=== PATIENT | male | born 1970 | race Caucasian/White ===

== ENCOUNTER 2016-11-01 10:11 | Emergency (ER) | payer OTHER ==
[2016-11-01 10:24] VITALS: BP 157/94; PULSE 77; TEMP 98.3; BMI 33.2
[2016-11-01] MEDS ORDERED: OXYCODONE/APAP 5/325MG COMBO TABLET PO ONE (11:25)
[2016-11-01] MEDS ORDERED: OXYCODONE/APAP 5/325MG COMBO TABLET ONE (11:26)
--- NOTE | 2016-11-01 13:27 | PDOC ---
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 - Psycho/Social/Smoking Cessation Hx Suicidal Ideation: No Smoking History: Never smoked Review of Systems - Review of Systems Constitutional: Yes: Malaise. No: Chills, Fever HEENTM: No: Symptoms Reported Respiratory: No: Symptoms reported, Cough Cardiac (ROS): No: Symptoms Reported, Lightheadedness : No: Burning, Dysuria, Hematuria, Incontinence, Testicular Swelling *Physical Exam - Vital Signs Last Vital Signs Temp Pulse Resp BP Pulse Ox 98.3 F 77 16 157/94 97 11/01/16 10:21 11/01/16 10:21 11/01/16 10:21 11/01/16 10:21 11/01/16 10:21 - Physical Exam General Appearance: Yes: Appropriately Dressed. No: Apparent Distress HEENT: positive: TMs Normal, Pharynx Normal Neck: positive: Supple, Lymphadenopathy (R). negative: Tender, Rigid, Lymphadenopathy (L) Respiratory/Chest: positive: Lungs Clear, Accessory Muscle Use Cardiovascular: positive: Regular Rhythm, Regular Rate Rectal Exam: positive: hemorrhoids (large non thrombosised hemorrhoid; no bleeding). negative: melena, decreased tone ED Treatment Course - Medications Given in the ED: ED Medications Discontinued Medications Generic Name Dose Route Start Last Admin Trade Name Freq PRN Reason Stop Dose Admin Oxycodone/Acetaminophen 2 combo 11/01/16 11:25 11/01/16 11:28 Percocet 5/325 - PO 11/01/16 11:26 2 combo ONCE ONE Administration Medical Decision Making - Medical Decision Making 11/01/16 13:[address] humphries / surgery; suggests referral to office next week post treatment at home *DC/Admit/Observation/Transfer Diagnosis at time of Disposition: Hemorrhoid Qualifiers: Hemorrhoid type: unspecified Qualified Code(s): K64.9 - Unspecified hemorrhoids - Discharge Dispostion Disposition: HOME Condition at time of disposition: Stable Admit: No - Referrals Referrals: Quirino Sahu MD [Staff Physician] - - Patient Instructions Additional Instructions: please see surgeon in office next saturday, call for appointment; use [facility] baths as directed - Post Discharge Activity Work/School Note: Back to Work
== END 2016-11-01 13:35 | disposition home or self-care (01) ==
LOC: JERFT 10:11
DX: K64.9 Unspecified hemorrhoids (principal)
CPT/HCPCS: 99281-25

== ENCOUNTER 2019-10-23 22:58 | Emergency (ER) | payer SELFPAY ==
[2019-10-23 23:04] VITALS: BP 165/104; PULSE 69; TEMP 98; BMI 33.2
--- NOTE | 2019-10-24 00:16 | PDOC ---
History of Present Illness - General Chief Complaint: Pain Stated Complaint: LEG PAIN Time Seen by Provider: 10/24/19 00:16 - History of Present Illness Initial Comments: 10/24/19 00:41 49 yo M no PMH presenting with L foot pain. 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 Has been taking ibuprofen for pain with some relief, but he currently is having 10/ 10 pain. States that he is able to walk, albeit with pain. Full ROM, no weakness, numbness, or tingling. Past History - Past Medical History Allergies/Adverse Reactions: Allergies Allergy/AdvReac Type Severity Reaction Status Date / Time Penicillins Allergy Intermediate Rash Verified 10/23/19 23:04 Home Medications: Ambulatory Orders Docusate Sodium [Colace -] 100 mg PO BID #20 capsule 11/01/16 Clindamycin [Cleocin -] 300 mg PO Q6HPO #28 capsule 10/24/19 COPD: No - Psycho Social/Smoking Cessation Hx Smoking History: Never smoked Review of Systems - Review of Systems Comments:: 10/24/19 03:24 GENERAL/CONSTITUTIONAL: denies fever, chills, diaphoresis, generalized weakness , malaise, loss of appetite, weight change HEAD, EYES, EARS, NOSE AND THROAT: denies rhinorrhea, nasal congestion, throat pain, throat swelling, difficulty swallowing, mouth swelling, ear pain, eye pain , visual changes NEUROLOGIC: denies headache, focal weakness or paresthesias, dizziness, unsteady gait, seizure, mental status changes, bladder or bowel incontinence CARDIOVASCULAR: denies chest pain, syncope, palpitations, irregular heart rate, lightheadedness, peripheral edema RESPIRATORY: denies cough, shortness of breath, dyspnea with exertion, orthopnea , wheezing, stridor, hemoptysis GASTROINTESTINAL: denies abdominal pain, abdominal distension, nausea, vomiting , diarrhea, constipation, melena, hematochezia GENITOURINARY: denies dysuria, frequency, urgency, hesitancy, hematuria, flank pain, genital pain MUSCULOSKELETAL: endorses L metacarpophalangeal joint swelling and pain. Denies myalgia, back pain, neck pain SKIN: denies rash, itching, pallor HEMATOLOGIC/IMMUNOLOGIC: denies easy bleeding, easy bruising, lymphadenopathy, frequent infections ENDOCRINE: denies unexplained weight gain, unexplained weight loss, heat intolerance, cold intolerance PSYCHIATRIC: denies anxiety, depression, suicidal or homicidal ideation, hallucinations *Physical Exam - Vital Signs Last Vital Signs Temp Pulse Resp BP Pulse Ox 98 F 69 18 165/104 H 99 10/23/19 23:00 10/23/19 23:00 10/23/19 23:00 10/23/19 23:00 10/23/19 23:00 - Physical Exam 10/24/19 03:24 GENERAL: Awake, alert, and fully oriented, in no acute distress. HEAD: Normal with no signs of trauma. EYES: Pupils equal, round and reactive to light, extraocular movements intact, sclera anicteric, conjunctiva clear. No lid lag. EARS, NOSE, THROAT: Ears normal, nares patent, oropharynx clear without exudates. Dry mucous membranes. NECK: Normal range of motion, supple without lymphadenopathy, JVD, or masses. LUNGS: Breath sounds equal, clear to auscultation bilaterally. No wheezes, and no crackles. No accessory muscle use. HEART: Regular rate and rhythm, normal S1 and S2 without murmur, rub or gallop. ABDOMEN: Soft, nontender, non-distended, normoactive bowel sounds, negative guarding, negative rebound, no masses. MUSCULOSKELETAL: Normal range of motion at all joints. No bony deformities or tenderness. No CVA tenderness. UPPER EXTREMITIES: 2+ pulses, warm, well-perfused. No cyanosis. No clubbing. Cap refill <2 seconds. No peripheral edema. LOWER EXTREMITIES: 2+ pulses, warm, well-perfused. No calf tenderness. No peripheral edema. Erythema and edema at the L big toe's metacarpophalangeal area , with ttp. NEUROLOGICAL: Cranial nerves II-XII intact. Normal speech. PSYCHIATRIC: Cooperative. Good eye contact. Appropriate mood and affect. SKIN: Warm, dry, normal turgor, no rashes or lesions noted. ED Treatment Course - LABORATORY CBC & Chemistry Diagram: 10/24/19 02:07 10/24/19 02:07 Medical Decision Making - Medical Decision Making 10/24/19 01:14 Concern for broken bone vs soft tissue swelling vs inflammatory process. - CBC, CMP - CRP, ESR - L foot X ray - Tylenol 1g - clinda 10/24/19 03:14 Foot X ray without fracture, labs unremarkable. Will dc with antibiotics to his pharmacy. Discharge - Discharge Information Problems reviewed: Yes Clinical Impression/Diagnosis: Foot pain, left Condition: Stable Disposition: HOME - Admission No - Additional Discharge Information Prescriptions: Clindamycin [Cleocin -] 300 mg PO Q6HPO #28 capsule - Follow up/Referral - Patient Discharge Instructions Patient Printed Discharge Instructions: DI for Foot Pain Additional Instructions: You were seen with L foot pain. The X rays did not show any fracture, and your labs were normal. However, we have sent antibiotics to your pharmacy. Please take them as prescribed. Follow up with your primary care doctor within one week. Return to the ED if you develop worsening symptoms. - Post Discharge Activity
[2019-10-24] MEDS ORDERED: ACETAMINOPHEN 500 MG TABLET (FP) PO ONE (00:41)
[2019-10-24] MEDS ORDERED: ACETAMINOPHEN 325 MG TABLET (FP) ONE (00:50)
[2019-10-24] MEDS ORDERED: KETOROLAC TROMETHAMINE 30 MG/1 ML VIAL IM ONE (00:51)
[2019-10-24] MEDS ORDERED: KETOROLAC TROMETHAMINE 30 MG/1 ML VIAL ONE (01:27)
[2019-10-24] MEDS ORDERED: CLINDAMYCIN 900 MG PREMIX IVPB 900 MG/50 ML BAG IVPB ONE (01:52)
[2019-10-24 02:18] LABS: BASO % 0.5 % (0-2.0); EOS % 0.6 % (0-4.5); HEMATOCRIT 44.4 % (35.4-49); HEMOGLOBIN 15.3 GM/dL (11.7-16.9); LYMPH % 25.4 % (8-40); MCH 30.3 pg (25.7-33.7); MCHC 34.5 g/dl (32.0-35.9); MEAN CELL VOLUME 87.9 fl (80-96); MEAN PLT VOLUME 8.7 fl (7.5-11.1); MONO % 8.4 % (3.8-10.2); NEUT % 65.1 % (42.8-82.8); PLATELET COUNT 133 K/MM3 (134-434); RBC 5.05 M/mm3 (4.00-5.60); WHITE BLOOD COUNT 7.1 K/mm3 (4.0-10.0)
[2019-10-24 02:50] LABS: ALBUMIN 3.8 g/dl (3.4-5.0); BILIRUBIN,TOTAL 0.5 mg/dL (0.2-1); BLOOD UREA NITROGEN 17.7 mg/dL (7-18); CALCIUM 9.1 mg/dL (8.5-10.1); CREATININE 1.1 mg/dL (0.55-1.3); POTASSIUM 4.1 mmol/L (3.5-5.1); TOT PROT 6.9 g/dl (6.4-8.2)
[2019-10-24 02:55] LABS: URIC ACID 7.5 mg/dL (2.6-7.2)
== END 2019-10-24 03:28 | disposition home or self-care (01) ==
LOC: JER 22:58
DX: M79.672 Pain in left foot (principal); Z88.0 Allergy status to penicillin
CPT/HCPCS: 36415; 73630-TC-LT; 80053; 84550; 85025; 85651; 86140; 99284-25